=== PATIENT | female | born 1945 | race Caucasian/White ===

== ENCOUNTER → 2020-05-08 | Outpatient (CLI) | payer MEDICARE ==
--- NOTE | 2020-05-08 15:50 | KCIC ---
EXAM: MRI RIGHT SHOULDER WITHOUT CONTRAST INDICATION: Right shoulder pain and weakness after fall 2 weeks ago COMPARISON: CT right shoulder 04/17/2020 TECHNIQUE: Multiplanar, multisequence imaging of the right shoulder without contrast. FINDINGS: ROTATOR CUFF: There are complete full-thickness tears of the supraspinatus and infraspinatus tendons. With retraction to the medial humeral head. There is fluid extending into the infraspinatus. Mild supraspinatus and infraspinatus atrophy and edema. Small partial thickness tear of the far cranial subscapularis tendon. Teres minor tendon is intact. LABRUM: Superior labral degeneration. BICEPS TENDON: Biceps tendon is subluxed medially and perched on the groove. There is a longitudinal split tear of the tendon exits the joint. 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 Type II acromion with anterior downsloping. GLENOHUMERAL JOINT: Cartilage is intact. Alignment is normal. There is no acute fracture. Marrow signal is normal.. OTHER: Large joint effusion and fluid in the bursa.. IMPRESSION: 1. Massive rotator cuff tear with complete tears of the supraspinatus and infraspinatus tendons. Fibers are retracted to the medial humeral head. Mild atrophy and edema of both muscles. 2. Small partial-thickness tear of the far cranial subscapularis tendon. 3. Medial subluxation and longitudinal split tear of the biceps tendon as it exits the joint. 4. Large joint effusion. Electronically signed by: Elizabeth Walters MD (05/08/2020 3:46 PM) [id number]
== END ==
LOC: KCIC MRI 13:06
PROVIDERS: ATTEND Orthopaedic Surgery
DX: S46.211A Strain of muscle, fascia and tendon of other parts of biceps, right arm, initial encounter (principal); M75.121 Complete rotator cuff tear or rupture of right shoulder, not specified as traumatic; M19.011 Primary osteoarthritis, right shoulder; M25.711 Osteophyte, right shoulder; M25.411 Effusion, right shoulder; X58.XXXA Exposure to other specified factors, initial encounter; Y93.89 Activity, other specified; Y92.89 Other specified places as the place of occurrence of the external cause; Y99.8 Other external cause status
CPT/HCPCS: 73221